=== PATIENT | female | born 1990 | race Caucasian/White ===

== ENCOUNTER → 2018-07-21 | Outpatient (CLI) | payer OTHER ==
[~2018-07-21] MED LIST: ACET500C PO; BIOT5CAP3 PO; CHOL100012 PO; MAGN100T6 PO; ONDA4TAB7 PO; OXYC-302 PO; VITA1TAB13 PO
== END | disposition home or self-care (01) ==
LOC: RAD 16:09
PROVIDERS: ATTEND Registered Nurse
DX: G93.2 Benign intracranial hypertension (principal); Z98.2 Presence of cerebrospinal fluid drainage device
CPT/HCPCS: 70250; 70450; 71046; 74018

== ENCOUNTER 2018-10-02 11:28 | Day surgery (SDC) | payer OTHER ==
[~2018-10-02] VITALS: Ht 180.3 cm; Wt 130.6 kg
[2018-10-02 12:00] VITALS: BP 117/79
[2018-10-02] MEDS ORDERED: SODIUM CHLORIDE 0.9% 500 ML IV SCH (12:30)
[2018-10-02] MEDS ORDERED: LIDOCAINE/PF 1%, 30ML ONE (12:48)
== END 2018-10-02 17:07 | disposition home or self-care (01) ==
LOC: OUT 11:28 → EDSTATUS 13:00 → OUT 17:07
PROVIDERS: ATTEND Registered Nurse
DX: G91.8 Other hydrocephalus (principal); Z88.0 Allergy status to penicillin; Z88.8 Allergy status to other drugs, medicaments and biological substances; Z91.030 Bee allergy status
CPT/HCPCS: 62270; 77003; J3490